=== PATIENT | female | born 1940 | race Caucasian/White ===

== ENCOUNTER 2016-07-29 21:01 | Emergency (ER) | payer OTHER ==
[2016-07-29 21:55] VITALS: BP 150/93; PULSE 94; RESP 16; TEMP 97.5; O2SAT 96
[2016-07-29 22:03] LABS: COLOR YELLOW; LEUKOCYTE ESTERASE,URINE 3+ (NEGATIVE); NITRITE,URINE NEGATIVE (NEGATIVE)
[2016-07-29 22:07] LABS: BACTERIA 3+ /hpf (NONE SEEN); WBC,URINE >182 /hpf (0-3)
[2016-07-29] MEDS ORDERED: CEPHALEXIN 500 MG CAP PO ONE (22:09)
--- NOTE | 2016-07-29 22:13 | UCPHY ---
H & P Time Seen by Provider: 07/29/16 21:40 Patient Type: New HPI/ROS: This patient complains of dysuria frequency and urgency, onset this afternoon. Symptoms are similar to prior UTIs. She admits having frequent UTIs. She has no other associated symptoms and notes no exacerbating or alleviating factors. She states the intensity of symptoms is moderate. ROS: No fevers or chills. No other constitutional symptoms. GI: No vomiting : No flank pain. No vaginal discharge. 5 point ROS is otherwise negative Smoking Status: Unknown if ever smoked Physical Exam: Physical Exam Vital signs are normal. General: No acute distress Eyes: Pupils equal and react to light. Extraocular motions are intact. Lungs: No respiratory distress. Cardiac: Brisk capillary refill is intact throughout. Back: No CVA tenderness Abdomen: Mild suprapubic tenderness. No guarding or rebound Skin: No rash or pallor. Neuro: Alert Initial differential diagnosis: Cystitis, pyelonephritis, interstitial cystitis Constitutional: Initial Vital Signs Temperature (C) 36.4 C 07/29/16 21:40 Heart Rate 94 07/29/16 21:40 Respiratory Rate 16 07/29/16 21:40 Blood Pressure 150/93 H 07/29/16 21:40 O2 Sat (%) 96 07/29/16 21:40 O2 Delivery Mode Room Air Allergies/Adverse Reactions: ciprofloxacin [From Cipro] Allergy (Verified 07/29/16 21:50) ciprofloxacin HCl [From Cipro] Allergy (Verified 07/29/16 21:50) prochlorperazine [From Compazine] Allergy (Verified 07/29/16 21:50) prochlorperazine edisylate [From Compazine] Allergy (Verified 07/29/16 21:50) prochlorperazine maleate [From Compazine] Allergy (Verified 07/29/16 21:50) Home Medications: Medication Instructions Recorded Cephalexin [Keflex (*)] 500 mg PO TID #21 cap 07/29/16 Estradiol 07/29/16 MDM/Departure - MDM Diagnostics: Urinalysis is consistent with UTI Medications Given: Discontinued Medications Cephalexin HCl (Keflex) 500 mg PO EDNOW ONE PRN Reason: Protocol Stop: 07/29/16 22:10 Last Admin: 07/29/16 22:29 Dose: 500 mg ED Course/Re-evaluation: Findings are consistent with cystitis. Patient is treated with Keflex - Depart Disposition: Home, Routine, Self-Care Clinical Impression: Cystitis Condition: Good Instructions: Urinary Tract Infection in Women (ED) Additional Instructions: Diagnosis: Cystitis Plan: Drink plenty fluids Keflex antibiotic Return for any significant worsening despite the treatment plan Prescriptions: Cephalexin [Keflex (*)] 500 mg PO TID #21 cap Referrals: MARIANNA LYMAN MD [Other] - As per Instructions - PQRS PQRS Measurement: 134: Depression screening and followup, PRIME MD-PHQ2 (12 years and older) Over the last 2 weeks, how often have you been bothered by any of the following problems? 1. Feeling down, depressed, or hopeless? 2. Little interest or pleasure in doing things? Patient answered no to both 1 and 2 130: Documentation of medications. Reviewed all patient medications, doses, route and frequency. 226: Do you smoke? [No.] 47: 65 and older: Advanced care planning. Patient designates surrogate decision maker as spouse 51: 18 years old and older with diagnosis of COPD, spirometry performance. NA 52: 18 years old and older with COPD and symptoms of COPD or FEV1<60% predicted prescribed a B Agonist. NA
== END 2016-07-29 22:36 | disposition home or self-care (01) ==
LOC: CED 21:01
DX: N30.90 Cystitis, unspecified without hematuria (principal)
CPT/HCPCS: 81003-PO; 81015-PO; G0463-PO